=== PATIENT | male | born 1970 | race Caucasian/White ===

== ENCOUNTER 2022-02-13 09:25 | Emergency (ER) | payer OTHER | END 2022-02-13 11:30 | disposition home or self-care (01) | LOC: JD.ED 09:25 | DX: S09.90XA Unspecified injury of head, initial encounter (principal); Z86.16 Personal history of COVID-19; W01.10XA Fall on same level from slipping, tripping and stumbling with subsequent striking against unspecified object, initial encounter; Y99.0 Civilian activity done for income or pay | CPT/HCPCS: 70450; 70450-26; 99283 ==